=== PATIENT | female | born 1960 | race Caucasian/White ===

== ENCOUNTER 2018-08-22 17:59 | Emergency (ER) | payer OTHER ==
[2018-08-22] MEDS ORDERED: Acetaminophen/oxyCODONE 325-5 MG Tab PO ONE (18:52)
[2018-08-22] MEDS ORDERED: Silver Sulfadiazine 1% Crm 400 GM Jar TOP ONE (18:53)
[2018-08-22] MEDS ORDERED: Silver Sulfadiazine 1% Crm 50 GM Tube TOP ONE (19:15)
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
--- NOTE | 2018-08-22 19:43 | CRLCR ---
INDICATION: Wrist pain after trauma. TECHNIQUE: Three views left wrist. COMPARISON: None FINDINGS AND IMPRESSION: There is a mildly comminuted, mildly impacted intra-articular fracture of the distal radial metaphysis. Mild volar tilt. There is associated soft tissue swelling. No other acute fracture. No dislocation. No suspicious bone lesion. Dictated by Victor Manuel Napier MD @ 08/22/2018 7:41:14 PM Dictated by: Victor Manuel Napier MD @ 08/22/2018 19:41:21 (Electronically Signed)
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
== END 2018-08-22 20:22 | disposition home or self-care (01) ==
LOC: JP.ED 17:59
DX: S52.572A Other intraarticular fracture of lower end of left radius, initial encounter for closed fracture (principal); S42.022A Displaced fracture of shaft of left clavicle, initial encounter for closed fracture; S40.812A Abrasion of left upper arm, initial encounter; S80.212A Abrasion, left knee, initial encounter; V19.9XXA Pedal cyclist (driver) (passenger) injured in unspecified traffic accident, initial encounter
CPT/HCPCS: 29125; 73030; 73110; 99283; A9270